=== PATIENT | male | born 1995 | race Caucasian/White ===

== ENCOUNTER 2020-11-05 20:59 | Emergency (ER) | payer OTHER ==
[~2020-11-05] VITALS: Ht 175.3 cm; Wt 106.6 kg
[~2020-11-05 20:59] MED LIST: TIME COL; [UNRECOGNIZED DRUG - OTHER]
--- OUTSIDE RECORDS SUMMARY | 2020-11-05 21:10 | XMS ---
PreManage Notification: AJ HAMM Security Health And Safety Specialist Events No recent Security Events currently on file CRITERIA MET - [facility] [place] - 2 Visits in 30 Days CARE PROVIDERS There are no care providers on record at this time. Alvino has no Care Guidelines for this patient. Walt V[facility] COUNT (12 MO.) [facility] T[facility] NOTE: Visits indicate total known visits. ED/C VISIT TRACKING (12 MO.) 11/05/2020 21:00 [facility] [place] [place] [facility]: Emergency COMPLAINT: - POSS CYST, TAILBONE PAIN 11/05/2020 17:13 [facility] [place] TYPE: Emergency COMPLAINT: - POSS ABSCESS INPATIENT VISIT TRACKING (12 MO.) No inpatient visits to display in this time frame [email or web address]
[2020-11-05] MEDS ORDERED: CEPHALEXIN500 MG PO (23:52)
[2020-11-05] MEDS ORDERED: HYDROCODON-ACE1 EA10 PO (23:52)
== END 2020-11-06 00:20 | disposition home or self-care (01) ==
LOC: ED 20:59
DX: L05.91 Pilonidal cyst without abscess (principal)
CPT/HCPCS: 10080; 99282-25

== ENCOUNTER 2020-11-15 07:28 | Day surgery (SDC) | payer OTHER ==
[~2020-11-15] VITALS: Ht 175.3 cm; Wt 106.8 kg
[~2020-11-15 07:28] MED LIST changes: +CEPHALEXIN500 MG PO; +HYDROCODON-ACE1 EA10 PO
--- NOTE | 2020-11-15 09:26 | NUR ---
11/15/20 0926 Carrie Beaver 0923- PT TO PACU IN SUPINE POSTION. EYES CLOSED. DOES NOT RESPOND TO VERBAL OR TACTILE STIMULI. BREATHING EASY AND UNLABORED. SPO2 >95% ON 6 L O2 VIA SIMPLE MASK.
[2020-11-15] MEDS ORDERED: IBUPROFEN600 MG PO (09:39)
[2020-11-15] MEDS ORDERED: ACETAMINOPHEN500 MG PO (09:40)
[2020-11-15] MEDS ORDERED: OXYCODON-ACETA1 EAC2 PO (09:40)
--- NOTE | 2020-11-15 12:21 | NUR ---
1030: PATIENT BACK IN DAY SURGERY ROOM FROM PACU. DENIES PAIN. DENIES NAUSEA. VS CHECKED. DRESSING INTACT. SCDs ON. IV SITE WNL. ICE WATER PLACED AT BEDSIDE. CALL LIGHT WITHIN REACH. PARTNER ALFIE AT BEDSIDE. 1115: DENIES PAIN. VS CHECKED. PATIENT STATES READY TO GO HOME. REVIEWED DISCHARGE INSTRUCTIONS WITH PATIENT AND HIS PARTNER. ALL QUESTIONS ANSWERED. 1135: IV DC'D WNL. TIP INTACT. DRESSING APPLIED. PATIENT ASSISTED OOB AND TO WALK AROUND ROOM. GAIT STEADY. PATIENT DRESSED INDEPENDENTLY. PATIENT DISCHARGED TO HOME WITH PARTNER VIA WHEELCHAIR.
--- NOTE | 2020-11-16 16:54 | PATH ---
[facility] [address] [place], [place] [address] Signed SPECIMEN(S): A PILONIDAL CYST SPECIMEN SOURCE: A. PILONIDAL CYST CLINICAL HISTORY: Pilonidal cystectomy. cleft abscess. FINAL PATHOLOGIC DIAGNOSIS: Designated "pilonidal cyst", excision: - Consistent with pilonidal disease. BRP:cml:C2NR MICROSCOPIC EXAMINATION: Histologic sections of all submitted blocks are examined by light microscopy. These findings, together with the gross examination, support the pathologic diagnosis. GROSS DESCRIPTION: The specimen, labeled "TC, pilonidal cyst," is received in formalin and consists of an oriented skin ellipse that measures 4.2 x 0.6 cm with attached yellow-childs, soft fibroadipose subcutaneous tissue that measures up to 2.8 cm. Skin surface is pink-childs, smooth. Sectioning through the specimen reveals a cyst that measures 0.7 cm in greatest dimension. The cyst is filled with a yellow-childs, liquefied tissue. Director Of Health Education sections are submitted in cassettes (A1-A2). JS (under the direct supervision of a pathologist) The Gross Description was prepared using a voice recognition system. The report was reviewed for accuracy; however, sound-alike word errors, addition and/or deletions may occur. If there is any question about this report, please contact Client Services. PERFORMING LABORATORY: The technical component was performed by [facility], [address] [place] [id number] (White Lead Filterer: Makenna Rosario MD; CLIA# [id number]). [facility] [address] [address] (CLIA# [id number]). Diagnostician: Sandeep Barron MD Pathologist PATIENT NAME: AJ HAMM PATHOLOGY DATE OF : [birth year] REPORT #: [id number] PHYSICIAN: [facility] PCP: STEPHANIE ROA PA-C REPORT IS CONFIDENTIAL AND NOT TO BE RELEASED WITHOUT AUTHORIZATION [address] [place] [address] Signed Electronically Signed 11/16/2020 Copies: ~ PATIENT NAME: AJ HAMM PATHOLOGY DATE OF : [birth year] REPORT #: [id number] PHYSICIAN: [facility] PCP: STEPHANIE ROA PA-C REPORT IS CONFIDENTIAL AND NOT TO BE RELEASED WITHOUT AUTHORIZATION
--- NOTE | 2020-11-19 18:29 | OR ---
[facility] [address] [place], [place] [address] Signed DATE OF OPERATION: 11/15/2020 SURGEON: Narciso Knowles MD PREOPERATIVE DIAGNOSIS: Pilonidal disease; recent drainage of pilonidal abscess. POSTOPERATIVE DIAGNOSIS: Pilonidal disease; recent drainage of pilonidal abscess. PROCEDURE: Pilonidal cystectomy. ANESTHESIA: Saddle block with IV sedation, Eriberto Ema, DIRT BIKE RACER and local 20 mL, 0.25% Marcaine with epinephrine. INDICATION: This 25-year-old moderately hirsute white man presented to the emergency room greater than 10 days ago with severe and unrelenting swelling in the cleft and found to have pilonidal abscess. This was drained affectively and antibiotics were administered. The patient has largely recovered from the acute problem. Examination now upon referral from his primary provider, RICO Vicente shows pilonidal disease cleft, no doubt the source of his recent abscess. We have discussed the options of management. I have recommended open cystectomy with wound packing rather than primary closure or rotational flap. The risks of bleeding, infection, and details about wound care have been reviewed with him. He understands and wished to proceed. FINDINGS: Indeed there was inflammatory granulation pocket corresponding to the previous abscess. There were very small pilonidal sinuses noted. Limited resection was able to be undertaken down to the complete extirpation of diseased tissue. The wound was packed with plain gauze. DESCRIPTION OF PROCEDURE: The patient was brought to the operating room having undergone a spinal anesthetic in the preoperative staging area. Preoperative antibiotics had been given and sequential compression device stockings were used. The patient was placed in a prone bruce-knife Electronically Signed By: NARCISO KNOWLES MD 11/19/20 1389 PATIENT NAME: AJ HAMM OPERATIVE REPORT DATE OF : [birth year] REPORT #: [id number] PHYSICIAN: NARCISO KNOWLES MD PCP: STEPHANIE UGARTE PA-C REPORT IS CONFIDENTIAL AND NOT TO BE RELEASED WITHOUT AUTHORIZATION [facility] [address] [place], [place] [address] Signed position, given intravenous sedation with propofol infusion and full cardiopulmonary monitoring. The buttocks were taped apart. The inter-mohit cleft was prepared with a Betadine solution and draped sterilely. A razor was used to remove excess hair in the midline. Examination of the site showed a hard nodule approximately the size of a yeny more like a dime, I should say a dime to the left of the midline and very small pits consistent with pilonidal disease. A limited elliptical incision was made in mohit cleft and dissection carried through the subcutaneous tissue first on the right side with electrocautery and then on the left side incorporating the inflammatory nodule. There was purulence within the nodule. It was quite obvious once excised. A well-formed symmetric excision was undertaken to the postsacral fascia. Hemostasis was assured with electrocautery. There was really not much bleeding. 20 mL of 0.25% Marcaine with epinephrine was injected locally. Irrigation was undertaken. The wound was packed with single ply gauze in the depths of the wound as well as a gauze packing over. Tape was applied. The patient returned to the supine position, taking recovery room in good condition returned to the supine position and taken to the recovery room in good condition. BLOOD LOSS: Minimal. COMPLICATIONS: None. MD RED Hanks/BANDARL /[id number] cc: Stephanie Ugarte Copies: ~ Electronically Signed By: NARCISO KNOWLES MD 11/19/20 1829 PATIENT NAME: AJ HAMM OPERATIVE REPORT DATE OF : [birth year] REPORT #: [id number] PHYSICIAN: NARCISO KNOWLES MD PCP: STEPHANIE UGARTE PA-C REPORT IS CONFIDENTIAL AND NOT TO BE RELEASED WITHOUT AUTHORIZATION
== END 2020-11-15 11:35 | disposition home or self-care (01) ==
LOC: OPS 07:28 → DS 07:28 → OPS 09:45 → DS 09:45 → OPS 11:35
PROVIDERS: ATTEND Surgery
PROC: 0JB90ZZ Excision of Buttock Subcutaneous Tissue and Fascia, Open Approach (ICD-10-PCS; principal; 2020-11-15 09:45)
DX: L05.01 Pilonidal cyst with abscess (principal); K21.9 Gastro-esophageal reflux disease without esophagitis; Z86.16 Personal history of COVID-19; Z90.09 Acquired absence of other part of head and neck
CPT/HCPCS: 00300; J0690; J2704; J7121